=== PATIENT | female | born 1995 | race Caucasian/White ===

== ENCOUNTER → 2018-01-22 | Outpatient (CLI) | payer OTHER, MEDICAID | LOC: FIMAGING 11:35 | PROVIDERS: ATTEND Student in an Organized Health Care Education/Training Program | DX: O26.873 Cervical shortening, third trimester (principal); O09.293 Supervision of pregnancy with other poor reproductive or obstetric history, third trimester; Z3A.35 35 weeks gestation of pregnancy ==

== ENCOUNTER → 2018-01-25 | Outpatient (CLI) | payer OTHER, MEDICAID | LOC: FIMAGING 07:52 | PROVIDERS: ATTEND Student in an Organized Health Care Education/Training Program | DX: O36.8330 Maternal care for abnormalities of the fetal heart rate or rhythm, third trimester, not applicable or unspecified (principal); O34.43 Maternal care for other abnormalities of cervix, third trimester; Z3A.35 35 weeks gestation of pregnancy ==